=== PATIENT | male | born 1990 | race Caucasian/White ===

== ENCOUNTER 2018-01-24 16:24 | Emergency (ER) | payer BC ==
[~2018-01-24] VITALS: Ht 185.4 cm; Wt 100.0 kg
[~2018-01-24 16:24] MED LIST: CNC36 PO
[2018-01-24 16:30] VITALS: TEMP 36.4; Ht 185.4 cm; Wt 100.0 kg
[2018-01-24] MEDS ORDERED: OXYCODONE HCL IR 5 MG TAB (IMMEDIATE RELEASE) PO STA (16:41)
[2018-01-24] MEDS ORDERED: IBUP1CAP9 PO (17:05)
--- NOTE | 2018-01-24 17:06 | DIAGNOSTIC IMAGING REPORT ---
L ANKLE MIN 3 VIEWS ROUTINE CLINICAL HISTORY: LEFT, EVAL FX trauma COMPARISON: None. DISCUSSION: Oblique fracture distal fibula. Mild bony distraction. No disruption of ankle mortise. All remaining osseous structures are unremarkable. There is no evidence for soft tissue swelling. IMPRESSION: Oblique fracture distal fibula The above report was generated using voice recognition software. It may contain grammatical, syntax or spelling errors. Electronically signed by: Jesús Mi M.D. 01/24/2018 5:05 PM Dictated Date/Time: 01/24/2018 5:04 PM
[2018-01-24] MEDS ORDERED: OXYC1TAB3 PO (17:19)
--- NOTE | 2018-01-24 17:21 | EMERGENCY ROOM VISIT NOTE ---
ED Visit Note First contact with patient: 16:33 CHIEF COMPLAINT: Left ankle injury today HISTORY OF PRESENT ILLNESS: Patient is an otherwise healthy 27-year-old male who presents the emergency department for evaluation of left ankle pain after an injury that occurred within the last 30 minutes. He was playing Frisbee golf , when he threw the Frisbee, he landed awkwardly on the left ankle and it rolled , he states that he heard a loud pop in his ankle when he fell. He tried to put weight on the ankle when he stood up but was unable to. He was helped to the car by friends and brought to the emergency department. He rates his discomfort an 8/10. He points to the lateral ankle when asked where he has pain. The foot does not feel weak or numb. The patient denies any other injuries. REVIEW OF SYSTEMS: Review of systems as per HPI. All other systems reviewed were negative. 10 systems reviewed. PMH: Electronic medical records are reviewed and summarized as above/below. See Problem List. SOCIAL HISTORY: Patient lives at home. He is employed. Non-smoker. PHYSICAL EXAM: Vital Signs: Reviewed Nurse's notes. CONSTITUTIONAL: Patient is a well-appearing 27-year-old male who is awake and alert and in no acute distress. MUSCULOSKELETAL: Examination of the left ankle show mild lateral soft tissue swelling. He is tender over the lateral malleolus. Trace joint effusion is palpable. No pain over the medial malleolus. Skin is intact. There is no pain over the proximal fibular head or over the fifth metatarsal. Range of motion was not assessed due to the nature of the injury. Pulses are easily palpable. Sensation light touch is intact. EMERGENCY DEPARTMENT COURSE: Patient was medicated with oxycodone 10 mg orally for discomfort. Ice pack was applied. X-rays of the left ankle note a essentially nondisplaced spiral fracture of the distal fibula. Questionable mortise widening. X-ray findings were reviewed with the patient. He is previously established with [facility] and would like to follow-up with them. He was placed in a short leg posterior and stirrup Ortho-Glass splint. He has crutches at home. He will be prescribed oxycodone for pain. Differential diagnoses entertained included fracture, sprain, dislocation, among others. Medication reconciliation: I attest that I have personally reviewed the patient' s current medication list. Blood pressure screening : Patient was found to have normal blood pressure on screening and does not require follow-up. Patient was reviewed in the [facility] Prescription Drug Monitoring Program, and there were no red flags noted. L ANKLE MIN 3 VIEWS ROUTINE CLINICAL HISTORY: LEFT, EVAL FX trauma COMPARISON: None. DISCUSSION: Oblique fracture distal fibula. Mild bony distraction. No disruption of ankle mortise. All remaining osseous structures are unremarkable. There is no evidence for soft tissue swelling. IMPRESSION: Oblique fracture distal fibula Problem List Medical Problems: (1) Broken thumb Status: Resolved (2) Corneal abrasion Status: Resolved (3) Corneal abrasion Status: Resolved (4) Foreign body of right eyelid Status: Resolved (5) Strain of left ankle and foot Status: Resolved (6) Strain of left ankle and foot Status: Resolved Surgical Problems: (1) History of appendectomy Status: Resolved Current/Historical Medications Scheduled PRN Ibuprofen (Ibuprofen), 400 MG PO DAILY PRN for Pain Oxycodone Immediate Rel Tab (Roxicodone Ir), 1-2 TAB PO Q4H PRN for Severe Pain Allergies Coded Allergies: No Known Allergies (Unverified , 08/18/14) Vital Signs Date Time Temp Pulse Resp B/P (MAP) Pulse Ox O2 Delivery O2 Flow Rate FiO2 01/24/18 17:33 73 18 142/95 96 Room Air 01/24/18 16:30 36.4 101 18 135/83 97 Room Air Medications Administered Medications (Trade) Dose Ordered Sig/Leticia Route Start Time Stop Time Status Last Admin Dose Admin Oxycodone HCl (Roxicodone Immediate Rel Tab) 10 mg NOW STAT PO 01/24/18 16:41 01/24/18 16:42 DC 01/24/18 16:54 10 MG Departure Information Impression Primary Impression: Fracture of distal end of left fibula Prescriptions Oxycodone Immediate Rel Tab (ROXICODONE IR) 5 Mg Tab 1-2 TAB PO Q4H Y for Severe Pain, #30 TAB For Initial Treatment Prov: Kristina Riggs PA 01/24/18 Referrals Jarett Burnham III, CRNP (PCP) Kenneth Rascon D.O. Patient Instructions [facility] Additional Instructions DO NOT drive, drink alcohol, operate machinery, or perform dangerous activities today. You were given medications in the ER that can affect your ability to safely function or operate a vehicle. Oxycodone (OxyIR) 5mg: Take 1-2 pills every four hours for breakthrough pain. Avoid alcohol, operating machinery or dangerous equipment, working on ladders or roofs, DRIVING, or situations where being under the influence may be dangerous. It is recommended to use an [id number] stool softener such as Colace, 100mg twice daily while taking this medication to avoid constipation. Ibuprofen(Motrin, Advil) may be used for fever or pain. Use 600mg every six hours as needed. Take with food. Avoid using more than 2400mg in a 24 hour period. Do not use 2400mg per day for more than three consecutive days without physician direction. Prolonged inappropriate use can lead to stomach upset or ulcers. This medication can be taken if you need to drive, work, or perform activities which may be dangerous when taking narcotic pain medication. (AND/OR) Acetaminophen(Tylenol) may be used for fever or pain. Use 1000mg every six hours as needed. Avoid using more than 3000mg in a 24 hour period. This medication can be taken if you need to drive, work, or perform activities which may be dangerous when taking narcotic pain medication. Ice compresses for 20 minutes at a time four times daily for 2-3 days. Use the crutches as instructed. Rest and elevate your injury. Do not get the splint wet. If your splint feels excessively tight, you have worsening pain, develop numbness or tingling, or your digits appear blue, loosen the soraya wrap. Then reapply the soraya wrap gently without removing the splint. If your symptoms are not quickly relieved return to the ER for re- evaluation. Continue current medications. Return to the ER immediately for any numbness, tingling, severe pain, extreme swelling in the extremity or as needed. Call [facility] on Friday to arrange follow up for your injury. Problem Qualifiers Primary Impression: Fracture of distal end of left fibula Encounter type: initial encounter Fracture type: closed Fracture morphology : other fracture Qualified Codes: S82.832A - Other fracture of upper and lower end of left fibula, initial encounter for closed fracture
[2018-01-24 17:33] VITALS: BP 142/95; PULSE 73; O2SAT 96
== END 2018-01-24 17:37 | disposition home or self-care (01) ==
LOC: C.EDB 16:27 → C.EDD 17:37
DX: S82.435A Nondisplaced oblique fracture of shaft of left fibula, initial encounter for closed fracture (principal); Z87.828 Personal history of other (healed) physical injury and trauma; X50.9XXA Other and unspecified overexertion or strenuous movements or postures, initial encounter; Y93.89 Activity, other specified